=== PATIENT | male | born 1990 | race African-American/Black ===

== ENCOUNTER 2019-02-02 08:46 | Day surgery (SDC) | payer OTHER ==
[~2019-02-02] VITALS: Ht 180.3 cm; Wt 102.7 kg
[2019-02-02] MEDS ORDERED: MIRA3350 PO (09:28)
[2019-02-02] MEDS ORDERED: MAGN296S16 PO (09:28)
[2019-02-02] MEDS ORDERED: ONDANSETRON 4MG/2ML VIAL (J2405) IV ONE ×3 (10:00→18:15)
[2019-02-02] MEDS ORDERED: NS 1,000 ML IV ONE (10:00)
[2019-02-02] MEDS ORDERED: MORPHINE 4 MG/ML 1ML VIAL/SYRINGE (J2270) IV ONE ×2 (10:00→11:30)
[2019-02-02 10:04] LABS: BASO % 0.3 % (0.0-1.0); EOS % 0.1 % (0.0-3.0); HEMATOCRIT 48.9 % (42.0-52.0); HEMOGLOBIN 16.6 g/dl (13.5-17.5); LYMPH # 1.2 10^3/uL (1.5-6.5); LYMPH % 7.8 % (24.0-44.0); MEAN CORPUSCULAR HEMOGLOBIN 29.2 pg (27.0-33.0); MEAN CORPUSCULAR HGB CONC 33.9 g/dl (32.0-36.5); MEAN CORPUSCULAR VOLUME 85.9 fl (80.0-96.0); MONO % 6.5 % (0.0-5.0); NEUTROPHILS # 13.1 10^3/uL (1.8-7.7); NEUTROPHILS % 84.8 % (36.0-66.0); PLATELET COUNT, AUTOMATED 237 10^3/uL (150-450); RED BLOOD COUNT 5.69 10^6/uL (4.30-6.10); WHITE BLOOD COUNT 15.4 10^3/uL (4.0-10.0)
[2019-02-02 10:33] LABS: ALBUMIN 4.2 GM/DL (3.2-5.2); ALT/SGPT 44 U/L (12-78); BILIRUBIN,DIRECT 0.1 MG/DL (0.0-0.2); BILIRUBIN,TOTAL 0.5 MG/DL (0.2-1.0); BLOOD UREA NITROGEN 10 MG/DL (7-18); CALCIUM LEVEL 9.1 MG/DL (8.5-10.1); CARBON DIOXIDE LEVEL 31 MEQ/L (21-32); CHLORIDE LEVEL 100 MEQ/L (98-107); CREATININE FOR GFR 1.04 MG/DL (0.70-1.30); GLOMERULAR FILTRATION RATE > 60.0 (>60); GLUCOSE, FASTING 106 MG/DL (70-100); SODIUM LEVEL 138 MEQ/L (136-145); TOTAL PROTEIN 8.1 GM/DL (6.4-8.2)
[2019-02-02] MEDS ORDERED: ISOVUE-370 76% 100ML VIAL (Q9967) As Ordered ONE (10:38)
[2019-02-02] MEDS ORDERED: CIPROFLOXACIN 400 MG in APPROPRIATE DILUENT 1 EA IV ONE (11:15)
[2019-02-02] MEDS ORDERED: metroNIDAZOLE 500 MG in APPROPRIATE DILUENT 1 EA IV ONE (11:15)
--- NOTE | 2019-02-02 11:19 | REP ---
CT ABDOMEN AND PELVIS WITH IV BUT WITHOUT ORAL CONTRAST: HISTORY: Right lower quadrant pain. Rule out appendicitis. CT CONTRAST DOSE: 100 mL of intravenous Isovue 370. No comparison study. CT FINDINGS: Digital preliminary engineering job titles radiograph is noncontributory. The lung bases are clear on axial CT images. The liver and the spleen are normal in size. There are granulomatous calcifications in the spleen. No focal mass lesion is seen in either organ. The gallbladder is unremarkable. No abnormality is noted in the pancreas. No adrenal lesion is seen. The kidneys enhance symmetrically are morphologically intact. The appendix is dilated, fluid-filled, showing mural enhancement and periappendiceal edema consistent with acute appendicitis. A faintly opaque appendicolith is suspected at its origin. There is no evidence of abscess or free air. Exam is otherwise unremarkable. IMPRESSION: CT findings consistent with acute appendicitis. Appendix in the expected location in the right lower quadrant. No abscess or free air is seen. Question appendicolith. Electronically Signed by Sean Robb MD 02/02/2019 11:52 A
[2019-02-02] MEDS ORDERED: IBUP1TAB7 PO (11:42)
[2019-02-02] MEDS ORDERED: BUPIVACAINE HCL 0.25% 30 ML VIAL As Ordered ONE (14:59)
[2019-02-02] MEDS: LR 1,000 ML IV SCH (18:08)
[2019-02-02] MEDS ORDERED: MORPHINE 4 MG/ML 1ML VIAL/SYRINGE (J2270) IV PRN ×3 (18:15)
[2019-02-02] MEDS ORDERED: ONDANSETRON 4MG/2ML VIAL (J2405) IV PRN ×2 (18:15→21:00)
[2019-02-02] MEDS ORDERED: KETOROLAC 30 MG/ML VIAL (J1885) IV PRN (18:15)
[2019-02-02] MEDS ORDERED: fentaNYL 100 MCG/2 ML INJECTION (J3010) As Ordered ONE ×2 (18:32→19:19)
[2019-02-02] MEDS ORDERED: MIDAZOLAM INJ 2 MG/2 ML VIAL (J2250) As Ordered ONE (18:32)
[2019-02-02] MEDS ORDERED: metroNIDAZOLE/NACL 500MG(5MG/ML)100 ML BAG (S0030) As Ordered ONE (19:27)
[2019-02-02] MEDS ORDERED: PHENYLephrine HCL 500 MCG/5 ML (100MCG/ML) SYRINGE (J2370) As Ordered ONE (19:32)
[2019-02-02] MEDS ORDERED: ACETAMINOPHEN 1000MG 100ML IV BTL (OFIRMEV) (J0131 PER 10MG) As Ordered ONE (19:35)
[2019-02-02] MEDS ORDERED: KETOROLAC 60 MG/2 ML VIAL (J1885) As Ordered ONE (19:35)
[2019-02-02] MEDS ORDERED: ROCURONIUM BROMIDE 50 MG/5 ML VIAL As Ordered ONE (19:37)
[2019-02-02] MEDS ORDERED: ACETAMINOPHEN TAB 650MG DOSE (2X325MG) PO PRN (20:30)
[2019-02-02] MEDS ORDERED: fentaNYL 100 MCG/2 ML INJECTION (J3010) IV PRN (21:00)
[2019-02-02] MEDS ORDERED: METOCLOPRAMIDE INJ 10MG/2ML VIAL (J2765) IV PRN (21:00)
[2019-02-02] MEDS ORDERED: MEPERIDINE INJ 25 MG/ML VIAL (J2175) IV PRN (21:00)
[2019-02-02] MEDS ORDERED: LR 1,000 ML IV SCH (21:00)
[2019-02-02] MEDS ORDERED: metroNIDAZOLE 500 MG in APPROPRIATE DILUENT 1 EA IV SCH (21:00)
[2019-02-02] MEDS ORDERED: PERCOCET 5MG/325MG TAB PO PRN (21:00)
[2019-02-02 21:40] VITALS: BP 136/74
[2019-02-02 22:10] VITALS: BP 138/73
[2019-02-02] MEDS: NORCO, ANEXSIA 5/325MG TABLET (HYDROcodone/ACETAMINOPHEN) PO PRN (22:16)
[2019-02-02 22:40] VITALS: BP 132/66
[2019-02-02 23:40] VITALS: BP 131/55
[2019-02-03] VITALS (7 sets, daily range): BP systolic 126–136; BP diastolic 58–67
[2019-02-03] MEDS ORDERED: CIPROFLOXACIN 400 MG in APPROPRIATE DILUENT 1 EA IV SCH ×2
[2019-02-03] MEDS: LR 1,000 ML IV SCH ×2 (02:05→20:00)
[2019-02-03] MEDS: IBUPROFEN 400 MG TAB PO PRN ×4 (02:57→23:53)
[2019-02-03] MEDS: NORCO, ANEXSIA 5/325MG TABLET (HYDROcodone/ACETAMINOPHEN) PO PRN ×5 (02:57→23:54)
--- NOTE | 2019-02-03 07:55 | RO ---
DATE OF PROCEDURE: 02/02/2019 PREOPERATIVE DIAGNOSIS: Acute appendicitis. POSTOPERATIVE DIAGNOSIS: Acute appendicitis. PROCEDURE PERFORMED: Laparoscopic appendectomy. SURGEON: Dr. Mal Jackson NIB ASSEMBLER: ANESTHESIA: General. 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 The character of the pain was consistent with appendicitis. He had moderate to marked tenderness in his right lower quadrant and a CT scan was consistent with acute appendicitis. He is now for laparoscopic appendectomy. OPERATIVE PROCEDURE: The patient was placed supine on the operating table. He was placed under general endotracheal anesthesia. The patient's abdomen was prepped and draped in a sterile fashion. 0.25% Marcaine was infiltrated just above the umbilicus along the midline. A short incision was made and deepened through the subcutaneous tissues to the fascia. The fascia was opened along the midline. The peritoneum was opened bluntly. A Hiro cannula was inserted and the abdomen was insufflated with carbon dioxide gas. The laparoscope was inserted. There were no acute inflammatory changes identified in the upper abdomen. There was some gelatinous exudate low in the right lower quadrant just below the cecum. A 5 mm trocar was placed low in the midline and a second 5 mm trocar was placed in the left lower quadrant. The patient was tilted slightly to a Trendelenburg position and rolled slightly to the left. Graspers were inserted. Inspection revealed that the patient had a short fairly stubby appendix, perhaps 4-5 cm in length, extending inferiorly from the cecum. The gelatinous exudate that had been noted with lying just lateral to the inflamed appendix. This was grasped with a grasper and removed through one of the trocars. Some of inflammatory attachments between the appendix and the adjacent terminal ileum and cecum were broken apart bluntly. The appendix was elevated. Some fibrofatty tissue around the appendix was divided using the hook cautery. The vascular bundle was identified and this was divided using a white load of the 45 mm linear cutter stapler. The remaining tissues around the base of the appendix were divided using the hook cautery. Once the wall of the appendix had been completely exposed, the appendix was stapled at its juncture with the cecum using a blue load of the endoscopic 45 mm linear cutter. The appendix was placed in an Endopouch. The staple line appeared excellent. The right lower quadrant was irrigated with saline. This was then removed. Final inspection revealed no evidence of bleeding and there was no significant residual inflammatory debris. The patient was returned to a flat position. The abdomen was deflated and the trocars were removed. The appendix was recovered through the supraumbilical site. It was necessary to extend the incision slightly to allow passage of the appendix and this was then sent for permanent pathology. The fascia at the supraumbilical site was approximated with interrupted simple sutures of #2-0 Vicryl. One additional suture was placed to close the fascia where it had been opened slightly off center to the right over the rectus muscle. The subcutaneous tissue in the supraumbilical site was approximated with a single #2-0 Vicryl. The skin incisions were closed with buried #5-0 Vicryl and Steri-Strips. Light dressings were applied. The patient tolerated the procedure well without apparent complication. He was awakened in the operating room, extubated and moved to the recovery room in stable condition.
[2019-02-04] VITALS: BP 122/62
[2019-02-04 04:00] VITALS: BP 111/57
[2019-02-04 08:00] VITALS: BP 138/81
[2019-02-04] MEDS ORDERED: NORC1TAB7 PO (08:15)
[2019-02-04] MEDS: NORCO, ANEXSIA 5/325MG TABLET (HYDROcodone/ACETAMINOPHEN) PO PRN (08:18)
--- NOTE | 2019-02-05 07:56 | IPN ---
DATE: 02/03/2019 HISTORY: The patient is now postop day one from a laparoscopic appendectomy for acute appendicitis. He has generally been doing well. He has tolerated some clear liquids and was advanced to regular food. He has been ambulating. He does note some pain and has been using Newell fairly regularly. He has not required any morphine. He denies any nausea or vomiting. Vital signs show that he has been afebrile since last evening with the exception of a single temperature to 100 at approximately 4:00 p.m. His pulse is normal and his blood pressure is good. Intake and output shows that he has had an excellent oral intake and his urine output is likewise excellent. PHYSICAL EXAMINATION: The patient is alert and oriented. His heart exam shows a regular rhythm. The lungs are clear. The abdomen shows three clean and dry dressings. He does have some bowel sounds present. He has no undue tenderness on palpation. There are no new laboratory studies. IMPRESSION: The patient is doing well postop day #1 from his laparoscopic appendectomy for appendicitis. PLAN: The patient was not seen until late in the evening on the as I was involved in a major emergency procedure and was unable to see him earlier. He appears to be doing well. We discussed his plan for discharge and we will send him home in the morning. The patient will be discharged on the , at which time, he will be provided with a slip for the for convalescent leave and a prescription for some Newell.
--- NOTE | 2019-02-05 07:57 | IPN ---
DATE: 02/04/2019 HISTORY: The patient is now postop day #2 from his laparoscopic appendectomy for acute appendicitis. He is doing very well with decreased discomfort and improved activity level. Vital signs show that he has been afebrile since yesterday. His pulse is in the 50s to low 70s. His blood pressure is good. Intake and output shows an excellent urine output. PHYSICAL EXAMINATION: The patient is alert and oriented. Heart and lung exam is unremarkable and the abdomen is soft and without any undue tenderness. His dressings are clean and dry. IMPRESSION: The patient is doing very well 2 days postop from his laparoscopic appendectomy. PLAN: The patient will be discharged home. He can take a diet as tolerated. He was advised that he can shower as desired but should try not to scrub the Steri-Strips off the abdominal wall. He can participate in light activities but should avoid any strenuous activity. He was provided a note for the indicating that he just had surgery and I would recommend limited activity and that consideration should be given to convalescent leave. He was provided a prescription for a small number of [place] tablets take as needed and was advised that he could take Tylenol or Advil as needed for lesser pain. He should be scheduled with an appointment to followup in the office in 10-14 days and should call sooner for any problems.
== END 2019-02-04 09:55 | disposition home or self-care (01) ==
LOC: M ED 08:46 → M SDC 18:08 → M PED 21:39 → M SDC 02-04 09:55
PROVIDERS: ATTEND Surgery
DX: K35.80 Unspecified acute appendicitis (principal); J45.909 Unspecified asthma, uncomplicated; Z88.0 Allergy status to penicillin
CPT/HCPCS: 44970; 74177; 80048; 80076; 85025; 88304; 99285; J0131; J0744; J1885; J2250; J2270; J2370; J2405; J3010; Q9967